=== PATIENT | female | born 1985 | race Caucasian/White ===

== ENCOUNTER 2017-07-08 15:58 | Emergency (ER) | payer OTHER ==
[2017-07-08 16:10] VITALS: BP 119/75
== END 2017-07-08 17:11 | disposition home or self-care (01) ==
LOC: ED 15:58
DX: S46.911A Strain of unspecified muscle, fascia and tendon at shoulder and upper arm level, right arm, initial encounter (principal); S20.411A Abrasion of right back wall of thorax, initial encounter; W18.30XA Fall on same level, unspecified, initial encounter; Y93.89 Activity, other specified; Y92.89 Other specified places as the place of occurrence of the external cause; Y99.8 Other external cause status
CPT/HCPCS: Q0092